=== PATIENT | male | born 1995 | race Caucasian/White ===

== ENCOUNTER 2018-02-16 16:24 | Observation (INO) ==
[2018-02-16 18:06] LABS: Basophils % 0.3 % (0.0-0.8); Eosinophils % 0.2 % (0.00-10.9); Hematocrit 49.4 VOL% (42.0-52.0); Hemoglobin 17.4 GM/DL (14.0-18.0); Immature Granulocytes % 0.3 %; Immature Granulocytes Absolute 0.04 #; Lymphocytes # 2.1 10*3/uL (1.4-4.0); Lymphocytes % 15.1 % (21.2-54.2); Mean Corpuscular HGB Conc 35.2 GM/DL (32-36); Mean Corpuscular Hemoglobin 31 PG (27-34); Mean Corpuscular Volume 87.3 FL (87-102); Mean Platelet Volume 8.7 FL (9.6-12.0); Monocytes # 0.9 10*3/uL (0.11-0.8); Monocytes % 6.3 % (1.7-12.7); Neutrophils # 10.6 10*3/uL (1.4-7.4); Neutrophils % 77.8 % (38.7-73.9); Platelet Count 351 T/CUMM (130-400); Red Blood Count 5.66 MC/CUMM (3.8-5.5); Red Cell Distribution Width 12.1 % (9.3-17.3); White Blood Count 13.6 T/CUMM (4-12)
[2018-02-16 20:05] LABS: Barbiturates Screen,Urine Negative (Negative); Benzodiazepines Screen,Urine Negative (Negative); Cannabinoid Screen,Urine Negative (Negative); Opiate Screen,Urine Negative (Negative); Phencyclidine Screen,Urine Negative (Negative)
[2018-02-16 20:06] LABS: Calcium 10.1 MG/DL (8.5-10.1); Osmolality,Calculated 276.5 MOS/KG (273-304); Potassium 3.6 MMOL/L (3.5-5.1)
[2018-02-16 20:11] LABS: Apearance,Urine CLEAR (Clear); Bilirubin,Urine Negative (Negative); Blood, Urine Negative (Negative); Glucose,Urine (UA) Negative (Negative); Ketones,Urine 20 mg/dL (Negative); Mucus,Urine Occasional /LPF (Occasional); Nitrite,Urine Negative (Negative); Protein,Urine Negative; Urine Color Yellow (Yellow); Urine Specific Gravity 1.021 (1.001-1.035); Urine Urobilinogen < 2.0 EU/DL (0.2-1.0); WBC,Urine 1 /HPF (0-6)
[2018-02-16] MEDS ORDERED: DEXTROSE 50% 25 GM/50 ML VIAL IV ONE (20:22)
[2018-02-16] MEDS ORDERED: DEXTROSE 50% 25 GM/50 ML VIAL IV STA (20:46)
[2018-02-16] MEDS ORDERED: DEXTROSE 5% 1,000 ML IV SCH (21:00)
[2018-02-16] MEDS ORDERED: DEXTROSE 50% 25 GM/50 ML VIAL IV PRN (21:26)
[2018-02-16] MEDS ORDERED: ACETAMINOPHEN 325 MG TABLET PO PRN (21:26)
[2018-02-16] MEDS ORDERED: GLUCAGON 1 MG VIAL IM PRN (21:26)
[2018-02-16] MEDS ORDERED: ONDANSETRON 4 MG/2 ML VIAL IV PRN (21:26)
[2018-02-17 06:38] LABS: Calcium 9.1 MG/DL (8.5-10.1); Osmolality,Calculated 281.8 MOS/KG (273-304); Potassium 3.6 MMOL/L (3.5-5.1)
[2018-02-17 06:42] LABS: Basophils % 0.3 % (0.0-0.8); Eosinophils # 0.1 10*3/uL (0.0-0.87); Eosinophils % 0.8 % (0.00-10.9); Hematocrit 43.5 VOL% (42.0-52.0); Immature Granulocytes % 0.2 %; Immature Granulocytes Absolute 0.01 #; Lymphocytes # 2.6 10*3/uL (1.4-4.0); Lymphocytes % 40.2 % (21.2-54.2); Mean Corpuscular HGB Conc 35.2 GM/DL (32-36); Mean Corpuscular Hemoglobin 30 PG (27-34); Mean Corpuscular Volume 86.5 FL (87-102); Mean Platelet Volume 9.2 FL (9.6-12.0); Monocytes # 0.6 10*3/uL (0.11-0.8); Monocytes % 9.4 % (1.7-12.7); Neutrophils # 3.1 10*3/uL (1.4-7.4); Neutrophils % 49.1 % (38.7-73.9); Platelet Count 287 T/CUMM (130-400); Red Blood Count 5.03 MC/CUMM (3.8-5.5); Red Cell Distribution Width 12.3 % (9.3-17.3)
[2018-02-17 06:44] LABS: Hemoglobin 15.3 GM/DL (14.0-18.0); White Blood Count 6.4 T/CUMM (4-12)
[2018-02-17] MEDS ORDERED: DEXTROSE 50% 25 GM/50 ML VIAL IV PRN (08:09)
[2018-02-17] MEDS ORDERED: GLUCAGON 1 MG VIAL IM PRN (08:09)
[2018-02-17] MEDS: MONTELUKAST 10 MG TABLET PO SCH (09:31)
[2018-02-17] MEDS: DIVALPROEX ER 250 MG TABLET PO SCH (09:31)
[2018-02-17] MEDS: ENOXAPARIN 40 MG/0.4 ML SYRINGE SUBCUT SCH (09:32)
[2018-02-17] MEDS: PROPRANOLOL 10 MG TABLET PO SCH (14:09)
[2018-02-17] MEDS ORDERED: ATORVASTATIN 10 MG TABLET PO SCH (21:00)
[2018-02-17] MEDS ORDERED: INSULIN GLARGINE 100 UNIT/ML SUBCUT SCH (21:00)
[2018-02-18 06:24] LABS: Calcium 9.8 MG/DL (8.5-10.1); Osmolality,Calculated 278.2 MOS/KG (273-304); Potassium 4.3 MMOL/L (3.5-5.1)
[2018-02-18] MEDS ORDERED: INSULIN GLARGINE 100 UNIT/ML SUBCUT SCH (09:00)
[2018-02-18] MEDS: PROPRANOLOL 10 MG TABLET PO SCH (09:23)
[2018-02-18] MEDS: DIVALPROEX ER 250 MG TABLET PO SCH (09:23)
[2018-02-18] MEDS: MONTELUKAST 10 MG TABLET PO SCH (09:24)
[2018-02-18] MEDS: ENOXAPARIN 40 MG/0.4 ML SYRINGE SUBCUT SCH (09:24)
[2018-02-18 14:32] VITALS: BP 124/90
== END 2018-02-18 11:45 | disposition home or self-care (01) ==
LOC: N.EDINP 16:24 → N.ED 16:24 → SUATTDRO 21:18 → N.3E 02-17 02:30
PROVIDERS: ADMIT Internal Medicine